=== PATIENT | female | born 1930 | race African-American/Black ===

== ENCOUNTER 2016-10-25 17:38 | Emergency (ER) | payer MEDICARE, BC ==
[~2016-10-25] VITALS: Ht 160 cm; Wt 42.0 kg
[2016-10-25] MEDS ORDERED: calcium (18:40)
[2016-10-25] MEDS ORDERED: azor (18:40)
[2016-10-25] MEDS ORDERED: CHOL100046 PO (18:40)
[2016-10-25] MEDS ORDERED: ASPI-1159 PO (18:40)
[2016-10-25] MEDS ORDERED: LISI40TA4 PO (18:40)
[2016-10-25] MEDS ORDERED: TOPXL5 PO (18:40)
[2016-10-25] MEDS ORDERED: FLEC100T2 PO (18:40)
[2016-10-25] MEDS ORDERED: coq 10 (18:40)
[2016-10-25 23:20] VITALS: BP 159/79
== END 2016-10-25 23:09 | disposition home or self-care (01) ==
LOC: ER 20:40
DX: S80.11XA Contusion of right lower leg, initial encounter (principal); I10 Essential (primary) hypertension; W01.10XA Fall on same level from slipping, tripping and stumbling with subsequent striking against unspecified object, initial encounter; Y93.89 Activity, other specified; Y92.89 Other specified places as the place of occurrence of the external cause; Y99.8 Other external cause status; Z95.0 Presence of cardiac pacemaker; Z79.82 Long term (current) use of aspirin
CPT/HCPCS: 73590; 99284